=== PATIENT | male | born 1980 | race Caucasian/White ===

== ENCOUNTER 2017-05-20 18:48 | Inpatient (IN) | payer BC ==
[2017-05-20 19:14] VITALS: BMI 27.1
[2017-05-20] MEDS ORDERED: IBUPROFEN 600 MG TABLET (FP) PO ONE ×2 (19:28→19:39)
--- NOTE | 2017-05-20 19:28 | PDOC ---
History of Present Illness - History of Present Illness Initial Comments: 05/20/17 20:11 The patient is a 36 year old male, with a significant past medical history of frequent UTIs, who presents to the emergency department with increased swelling to his left testicle despite completing a 10 day course of Ciprofloxacin yesterday for UTI diagnosed 12 days ago. The patient states the swelling is much worse now than it was when he first was seen 12 days ago for left groin pain and left testicular swelling. He denies recently sexual activities. He denies penile discharge. Secondarily, he mentions he has a urologist at [facility] for 15 years with a history of [address] scans for his frequent UTIs. He states he has been told he has prostatitis. He denies chest pain, shortness of breath, headache and dizziness. He denies fever, chills, nausea, vomit, diarrhea and constipation. He denies dysuria, frequency, urgency and hematuria. Allergies: NKDA Urologist: Dr. Marcus Powers ([phone]) <Joselyn Faustin - Last Filed: 05/20/17 22:49> <Mera Gamez - Last Filed: 05/21/17 00:39> - General Chief Complaint: Back Pain Stated Complaint: PAIN Time Seen by Provider: 05/20/17 19:23 Past History <Joselyn Faustin - Last Filed: 05/20/17 22:49> - Immunization History Immunization Up to Date: Yes - Suicide/Smoking/Psychosocial Hx Smoking Status: No Smoking History: Never smoked Number of Cigarettes Smoked Daily: 0 Hx Alcohol Use: No (rarely) <Mera Gamez - Last Filed: 05/21/17 00:39> - Past Medical History Allergies/Adverse Reactions: Allergies Allergy/AdvReac Type Severity Reaction Status Date / Time No Known Allergies Allergy Verified 01/10/16 13:51 Home Medications: Ambulatory Orders Sulfamethoxazole/Trimethoprim [Bactrim *Ds*] 1 each PO BID #14 tablet 01/10/16 Doxycycline Hyclate 100 mg PO BID #14 capsule 05/20/17 Review of Systems - Review of Systems Able to Perform ROS?: Yes Comments:: 05/20/17 20:12 GENERAL/CONSTITUTIONAL: No fever or chills. No weakness. HEAD, EYES, EARS, NOSE AND THROAT: No change in vision. No ear pain or discharge. No sore throat. CARDIOVASCULAR: No chest pain or shortness of breath. RESPIRATORY: No cough, wheezing, or hemoptysis. GASTROINTESTINAL: No nausea, vomiting, diarrhea or constipation. GENITOURINARY: (+) increased left testicular swelling. No dysuria, frequency, or change in urination. No discharge. MUSCULOSKELETAL: No joint or muscle swelling or pain. No neck or back pain. SKIN: No rash NEUROLOGIC: No headache, vertigo, loss of consciousness, or change in strength/ sensation. ENDOCRINE: No increased thirst. No abnormal weight change. HEMATOLOGIC/LYMPHATIC: No anemia, easy bleeding, or history of blood clots. ALLERGIC/IMMUNOLOGIC: No hives or skin allergy. <Joselyn Faustin - Last Filed: 05/20/17 22:49> *Physical Exam - Vital Signs Last Vital Signs Temp Pulse Resp BP Pulse Ox 100.4 F H 95 H 20 131/72 99 05/20/17 19:10 05/20/17 19:10 05/20/17 19:10 05/20/17 19:10 05/20/17 19:10 - Physical Exam Comments: 05/20/17 20:12 GENERAL: Awake, alert, and fully oriented, in no acute distress HEAD: No signs of trauma EYES: PERRLA, EOMI, sclera anicteric, conjunctiva clear ENT: Auricles normal inspection, hearing grossly normal, nares patent, oropharynx clear without exudates. Moist mucosa NECK: Normal ROM, supple, no lymphadenopathy, JVD, or masses LUNGS: Breath sounds equal, clear to auscultation bilaterally. No wheezes, and no crackles HEART: Regular rate and rhythm, normal S1 and S2, no murmurs, rubs or gallops ABDOMEN: Soft, nontender, normoactive bowel sounds. No guarding, no rebound. No masses GENITAL: (+) left epididymis 2x size of the right testicle, left testicle is 3x size of right testicle. Left testicle is tender, warm and erythematous. No inguinal hernia appreciated. EXTREMITIES: Normal range of motion, no edema. No clubbing or cyanosis. No cords, erythema, or tenderness NEUROLOGICAL: Cranial nerves II through XII grossly intact. Normal speech, normal gait SKIN: Warm, Dry, normal turgor, no rashes or lesions noted. <Joselyn Faustin - Last Filed: 05/20/17 22:49> - Vital Signs Last Vital Signs Temp Pulse Resp BP Pulse Ox 100.4 F H 95 H 20 131/72 99 05/20/17 19:10 05/20/17 19:10 05/20/17 19:10 05/20/17 19:10 05/20/17 19:10 <Mera Gamez - Last Filed: 05/21/17 00:39> ED Treatment Course - LABORATORY CBC & Chemistry Diagram: 05/20/17 20:17 05/20/17 20:17 - ADDITIONAL ORDERS Additional order review: Laboratory Results 05/20/17 19:41 Urine HCG, Qual Negative - RADIOLOGY Radiograph Interpretation: EXAM: CT abdomen \T\ pelvis without contrast HISTORY: Rule out kidney stone COMPARISON: None. FINDINGS: 1. No evidence of an acute intra-abdominal process. No evidence of hydronephrosis or urinary tract calculi. No evidence of bowel obstruction, pneumoperitoneum or free fluid. No evidence of appendicitis. 2. Marked degenerative disc and endplate change L5-S1 level with bilateral L5 spondylolysis. Yumiko Cheney MD 05/20/2017 22:26 EST EXAM: Ultrasound scrotum HISTORY: Swelling on left COMPARISON: None. FINDINGS: 1. Edema and increased flow in the left epididymis consistent with left epididymitis. 2. Small complex left hydrocele with septations. 3. No definite evidence of orchitis and no evidence of testicular torsion. Yumiko Cheney MD 05/20/2017 22:28 EST - Medications Given in the ED: ED Medications Discontinued Medications Generic Name Dose Route Start Last Admin Trade Name Freq PRN Reason Stop Dose Admin Ibuprofen 600 mg 05/20/17 19:28 05/20/17 19:56 Motrin - PO 05/20/17 19:29 600 mg ONCE ONE Administration <Joselyn Faustin - Last Filed: 05/20/17 22:49> - LABORATORY CBC & Chemistry Diagram: 05/20/17 20:17 05/20/17 20:17 <Mera Gamez - Last Filed: 05/21/17 00:39> Medical Decision Making - Medical Decision Making 05/20/17 22:45 Dr. Marcus Powers, [facility] Urologist, was paged via phone answering service at this time requesting a call back for doctor to doctor consult. <Joselyn Faustin - Last Filed: 05/20/17 22:49> - Medical Decision Making 05/20/17 19:58 Pt has worsening swelling of his left scrotum. He has a fever. He was diagnosed at [facility] with a UTI he was treated with a shot and cipro pills. 05/20/17 22:16 CXR is normal. UA is normal; Pt has an elevated WBC count. Sono pending. 05/20/17 23:12 Case d/w Dr. Powers who recommends admission vs a dose of ampicillin and gentamicin IVPB now; home with doxy BID and follow in the office tomorrrow 05/21/17 00:16 Pt figured out that he completed a 10 day course of doxycycline and a 7 day course of cipro just a couple laguerre back completed both. Given that he just completed a course of oral doxy, I feel that sending daniel out with doxy will not be helpful. I will discuss with our urologist operation specialist and admit patient to the hospitalist team for scrotal cellulitis/epididymitis/septated varicocele; 05/21/17 00:21 Dr. Phillip urology agrees and will see the patient tomorrow. I will admit to hospitalist. <Mera Gamez - Last Filed: 05/21/17 00:39> *DC/Admit/Observation/Transfer - Attestations Scribe Attestion: 05/20/17 20:13 Documentation prepared by Joselyn Faustin, acting as medical claims assistant for Mera Gamez MD <Joselyn Faustin - Last Filed: 05/20/17 22:49> - Discharge Dispostion Admit: Yes <Mera Gamez - Last Filed: 05/21/17 00:39> Diagnosis at time of Disposition: Fever, Epididymitis, Varicocele, Cellulitis of scrotum - Discharge Dispostion Condition at time of disposition: Guarded - Prescriptions Prescriptions: Doxycycline Hyclate 100 mg PO BID #14 capsule - Referrals Referrals: Thiago Lucas MD [Primary Care Provider] - - Patient Instructions - Post Discharge Activity
[2017-05-20 20:07] LABS: URINE APPEARANCE CLEAR; URINE BILIRUBIN NEGATIVE (NEGATIVE); URINE BLOOD NEGATIVE (NEGATIVE); URINE COLOR LTYELLOW; URINE GLUCOSE (UA) NEGATIVE (NEGATIVE); URINE KETONE NEGATIVE (NEGATIVE); URINE LEUK ESTERASE NEGATIVE (NEGATIVE); URINE NITRITE NEGATIVE (NEGATIVE); URINE PROTEIN NEGATIVE (NEGATIVE); URINE UROBILINOGEN NEGATIVE mg/dL (0.2-1.0)
[2017-05-20 20:09] LABS: HCG,QUALITATIVE URINE NEGATIVE
[2017-05-20 20:32] LABS: BASO % 0.4 % (0-2.0); EOS % 0.5 % (0-4.5); HEMATOCRIT 42.6 % (35.4-49); HEMOGLOBIN 14.3 GM/dL (11.7-16.9); MCH 30.6 pg (25.7-33.7); MCHC 33.5 g/dl (32.0-35.9); MEAN CELL VOLUME 91.6 fl (80-96); MEAN PLT VOLUME 8.2 fl (7.5-11.1); MONO % 6.6 % (3.8-10.2); NEUT % 78.5 % (42.8-82.8); PLATELET COUNT 329 K/MM3 (134-434); RBC 4.65 M/mm3 (4.00-5.60); RDW 12.6 % (11.9-15.9); WHITE BLOOD COUNT 13.1 K/mm3 (4.0-10.0)
[2017-05-20 20:57] LABS: ALBUMIN 4.1 g/dl (3.4-5.0); ANION GAP 11 (8-16); BLOOD UREA NITROGEN 19 mg/dL (7-18); CHLORIDE 103 mmol/L (98-107); CO2 24 mmol/L (21-32); CREATININE 1.1 mg/dL (0.7-1.3); GLUCOSE,RANDOM 90 mg/dL (74-106); POTASSIUM 3.9 mmol/L (3.5-5.1); SGOT/AST 26 U/L (15-37); SGPT/ALT 39 U/L (12-78); SODIUM 138 mmol/L (136-145)
[2017-05-20 20:59] LABS: ALK PHOS 70 U/L (45-117); BILIRUBIN,TOTAL 0.7 mg/dL (0.2-1.0); TOT PROT 7.9 g/dl (6.4-8.2)
[2017-05-20] MEDS ORDERED: DOXYCYCLINE INJECTION 100 MG in DEXTROSE 5%-WATER - 150 ML IVPB ONE (22:34)
[2017-05-20] MEDS ORDERED: DOXYCYCLINE HYCLATE 100 MG VIAL ONE (22:40)
[2017-05-20] MEDS ORDERED: cefTRIAXone SODIUM 1 GM VIAL ONE (22:40)
[2017-05-20] MEDS ORDERED: GENTAMICIN INJECTION 100 MG in SODIUM CHLORIDE 97.5 ML IVPB ONE (23:09)
[2017-05-20] MEDS ORDERED: AMPICILLIN - 2 GM in SODIUM CHLORIDE 100 ML IVPB ONE (23:10)
[2017-05-20] MEDS ORDERED: GENTAMICIN SO4 80 MG/2 ML VIAL ONE (23:28)
[2017-05-20] MEDS ORDERED: AMPICILLIN SODIUM 2 GM VIAL ONE (23:28)
--- NOTE | 2017-05-21 00:51 | PN ---
Teaching Attending Note Name of Resident: Eligio Headley ATTENDING PHYSICIAN STATEMENT I saw and evaluated the patient. I reviewed the resident's note and discussed the case with the resident. I agree with the resident's findings and plan as documented. SUBJECTIVE: 36 M with hx. of UTI's (E-Coli), who presents with scrotal edema, failed outpatient for possibly UTI's. States he was oN Cipro X 10 days. Also, completed a course of Docycycline. Pt. states he noted scortal edema and erythema, no fevers at home, exept for with UTI. Also, has pain with scrotal edema. OBJECTIVE: Physical: VS: Vital Signs Period Temp Pulse Resp BP Sys/Flores Pulse Ox Last 24 Hr 100.4 F 95 20 131/72 99 GEN: NAd, resting in bed, AA0X3 HEENT: NCAT, PERRL, throat without erythema or exudates CARD: RRR S1, S2 RESP: CTAB ABD: BSx4, NTD to palpation EXT: - C/C/E CBCD WBC 13.1 K/mm3 (4.0-10.0) H D 05/20/17 20:17 RBC 4.65 M/mm3 (4.00-5.60) 05/20/17 20:17 Hgb 14.3 GM/dL (11.7-16.9) 05/20/17 20:17 Hct 42.6 % (35.4-49) 05/20/17 20:17 MCV 91.6 fl (80-96) 05/20/17 20:17 MCHC 33.5 g/dl (32.0-35.9) 05/20/17 20:17 RDW 12.6 % (11.9-15.9) 05/20/17 20:17 Plt Count 329 K/MM3 (134-434) D 05/20/17 20:17 MPV 8.2 fl (7.5-11.1) 05/20/17 20:17 CMP Sodium 138 mmol/L (136-145) 05/20/17 20:17 Potassium 3.9 mmol/L (3.5-5.1) 05/20/17 20:17 Chloride 103 mmol/L (98-107) 05/20/17 20:17 Carbon Dioxide 24 mmol/L (21-32) 05/20/17 20:17 Anion Gap 11 (8-16) 05/20/17 20:17 BUN 19 mg/dL (7-18) H D 05/20/17 20:17 Creatinine 1.1 mg/dL (0.7-1.3) D 05/20/17 20:17 Creat Clearance w eGFR > 60 (>60) 05/20/17 20:17 Random Glucose 90 mg/dL (74-106) 05/20/17 20:17 Calcium 9.0 mg/dL (8.5-10.1) 05/20/17 20:17 Total Bilirubin 0.7 mg/dL (0.2-1.0) D 05/20/17 20:17 AST 26 U/L (15-37) D 05/20/17 20:17 ALT 39 U/L (12-78) D 05/20/17 20:17 Alkaline Phosphatase 70 U/L (45-117) D 05/20/17 20:17 Total Protein 7.9 g/dl (6.4-8.2) 05/20/17 20:17 Albumin 4.1 g/dl (3.4-5.0) 05/20/17 20:17 Urine Test Results Urine Color Ltyellow 05/20/17 19:41 Urine Appearance Clear 05/20/17 19:41 Urine pH 5.0 (5.0-8.0) 05/20/17 19:41 Ur Specific [place] 1.018 (1.001-1.035) 05/20/17 19:41 Urine Protein Negative (NEGATIVE) 05/20/17 19:41 Urine Glucose (UA) Negative (NEGATIVE) 05/20/17 19:41 Urine Ketones Negative (NEGATIVE) 05/20/17 19:41 Urine Blood Negative (NEGATIVE) 05/20/17 19:41 Urine Nitrite Negative (NEGATIVE) 05/20/17 19:41 Urine Bilirubin Negative (NEGATIVE) 05/20/17 19:41 Ur Leukocyte Esterase Negative (NEGATIVE) 05/20/17 19:41 EXAM: CT abdomen \T\ pelvis without contrast HISTORY: Rule out kidney stone COMPARISON: None. FINDINGS: 1. No evidence of an acute intra-abdominal process. No evidence of hydronephrosis or urinary tract calculi. No evidence of bowel obstruction, pneumoperitoneum or free fluid. No evidence of appendicitis. 2. Marked degenerative disc and endplate change L5-S1 level with bilateral L5 spondylolysis. Yumiko Cheney MD 05/20/2017 22:26 EST EXAM: Ultrasound scrotum HISTORY: Swelling on left COMPARISON: None. FINDINGS: 1. Edema and increased flow in the left epididymis consistent with left epididymitis. 2. Small complex left hydrocele with septations. 3. No definite evidence of orchitis and no evidence of testicular torsion. ASSESSMENT AND PLAN: 36 M with hx. of UTI's (E-Coli), who presents with scrotal edema, failed outpatient for possibly UTI's. States he was oN Cipro X 10 days. Also, completed a course of Docycycline, being admitted for Sepsis due to epididymitis /scrotal cellulitis. 1.) Scotal Cellulitis/Epididymitis/Hydrocele - Lopez Cx - LA - IVF - S/P Gentamycin and Ampicillin as per , will get ID consult - consulted - GC screen - HIV test if pt. amenable 2.) DVT Ppx - Scds Place in Med-Sx
--- NOTE | 2017-05-21 01:56 | HP ---
CHIEF COMPLAINT: L scrotal swelling, pain PCP: None HISTORY OF PRESENT ILLNESS: 36 yo man w/ pmh of multiple UTIs presents to ED with increased swelling/pain of L testicle in the setting of recent 10 day abx course (ciprofloxacin) for UTI diagnosed 12 days ago. Pt states that he initially presented to urgent care two weeks ago for fever/dysuria, where he was diagnosed with UTI and started on 10 day course of ciprofloxacin. Yesterday, pt noted increased swelling and pain in L testicle, w/ no penile discharge, inguinal masses or local erythema. Pt denies ALCALA/Dizziness, fever/chills, CP, SOB, abdominal pain, N/V, diarrhea, rashes or focal neurologic deficits. He denies any recent dysuria, hematuria, frequency. He denies any recent sexual activity and has no prior hx of STDs. Pt sexually active and monogamous with , who has never been diagnosed with STD per pt, and does not use condoms. Pt states he had a similar episode of scrotal swelling around the age of 12, but is unable to provide further details of the hx or course. No hx of hernias. Pt follows w/ Dr. Powers at [facility] for last year and at [facility] for prior 10 years for his chronic, recurrent UTIs and has received multiple CT scans for evaluation, as well as cystoscopy, which was normal per pt. Per pt, Dr. powers has a suspicion of possible chronic prostatis as the possible source for recurrent infections. All work-up prior to this presentation has been inconclusive. Urologist: Dr. Marcus Powers ([phone]) ER course was notable for: (1)WBC 13, Fever 100.4 (2)Scrotal U/S w/ hydrocele and evidence of epididymitis (3)CT w/ no acute intra-abdominal process (4) Received 1x dose Amp/gent, doxy and rocephin in ED Recent Travel: None PAST MEDICAL HISTORY: Recurrent UTIs ?Prostatitis PAST SURGICAL HISTORY: None Social History: Smoking: Denies Alcohol: Denies Drugs: Denies Family History: No family hx of UTIs, recurrent infections or other chronic conditions Allergies No Known Allergies Allergy (Verified 01/10/16 13:51) HOME MEDICATIONS: Home Medications Medication Instructions Recorded Sulfamethoxazole/Trimethoprim 1 each PO BID #14 tablet 01/10/16 [Bactrim *Ds*] Doxycycline Hyclate 100 mg PO BID #14 capsule 05/20/17 REVIEW OF SYSTEMS CONSTITUTIONAL: fever, Absent: chills, diaphoresis, generalized weakness, malaise, loss of appetite, weight change HEENT: Absent: rhinorrhea, nasal congestion, throat pain, throat swelling, difficulty swallowing, mouth swelling, ear pain, eye pain, visual changes CARDIOVASCULAR: Absent: chest pain, syncope, palpitations, irregular heart rate, lightheadedness , peripheral edema RESPIRATORY: Absent: cough, shortness of breath, dyspnea with exertion, orthopnea, wheezing, stridor, hemoptysis GASTROINTESTINAL: Absent: abdominal pain, abdominal distension, nausea, vomiting, diarrhea, constipation, melena, hematochezia GENITOURINARY: L scrotal swelling, pain Absent: dysuria, frequency, urgency, hesitancy, hematuria, flank pain MUSCULOSKELETAL: Absent: myalgia, arthralgia, joint swelling, neck pain SKIN: Absent: rash, itching, pallor HEMATOLOGIC/IMMUNOLOGIC: Absent: easy bleeding, easy bruising, lymphadenopathy, frequent infections ENDOCRINE: Absent: unexplained weight gain, unexplained weight loss, heat intolerance, cold intolerance NEUROLOGIC: Absent: headache, focal weakness or paresthesias, dizziness, unsteady gait, seizure, mental status changes, bladder or bowel incontinence PSYCHIATRIC: Absent: anxiety, depression, suicidal or homicidal ideation, hallucinations. PHYSICAL EXAMINATION Vital Signs - 24 hr 05/20/17 19:10 Temperature 100.4 F H Pulse Rate 95 H Respiratory 20 Rate Blood Pressure 131/72 O2 Sat by Pulse 99 Oximetry (%) GENERAL: Awake, alert, and fully oriented, in no acute distress. HEAD: Normal with no signs of trauma. EYES: Pupils equal, round and reactive to light, extraocular movements intact, sclera anicteric, conjunctiva clear. No lid lag. EARS, NOSE, THROAT: Ears normal, nares patent, oropharynx clear without exudates. Moist mucous membranes. NECK: Normal range of motion, supple without lymphadenopathy, JVD, or masses. LUNGS: Breath sounds equal, clear to auscultation bilaterally. No wheezes, and no crackles. No accessory muscle use. HEART: Regular rate and rhythm, normal S1 and S2 without murmur, rub or gallop. ABDOMEN: Soft, nontender, not distended, normoactive bowel sounds, no guarding, no rebound, no masses. No hepatomegaly or splenomegaly. MUSCULOSKELETAL: Normal range of motion at all joints. No bony deformities or tenderness. No CVA tenderness. UPPER EXTREMITIES: 2+ pulses, warm, well-perfused. No cyanosis. No clubbing. No peripheral edema. LOWER EXTREMITIES: 2+ pulses, warm, well-perfused. No calf tenderness. No peripheral edema. NEUROLOGICAL: Cranial nerves II-XII intact. Normal speech. Normal gait. PSYCHIATRIC: Cooperative. Good eye contact. Appropriate mood and affect. SKIN: Warm, dry, normal turgor, no rashes or lesions noted, normal capillary refill. Genital: L testicle significantly enlarged, very tender to palpation when compared to R. Prominent, engorged epididymis. No inguinal hernia noted. No notable erythema, lesions, rashes or purulence. Laboratory Results - last 24 hr CBC, BMP 05/20/17 20:17 05/20/17 20:17 05/20/17 05/20/17 05/20/17 19:41 20:17 20:17 WBC 13.1 H D RBC 4.65 Hgb 14.3 Hct 42.6 MCV 91.6 MCH 30.6 MCHC 33.5 RDW 12.6 Plt Count 329 D MPV 8.2 Neutrophils % 78.5 Lymphocytes % 14.0 Monocytes % 6.6 Eosinophils % 0.5 D Basophils % 0.4 Sodium 138 Potassium 3.9 Chloride 103 Carbon Dioxide 24 Anion Gap 11 BUN 19 H D Creatinine 1.1 D Creat Clearance w eGFR > 60 Random Glucose 90 Calcium 9.0 Total Bilirubin 0.7 D AST 26 D ALT 39 D Alkaline Phosphatase 70 D Total Protein 7.9 Albumin 4.1 Urine Color Ltyellow Urine Appearance Clear Urine pH 5.0 Ur Specific [place] 1.018 Urine Protein Negative Urine Glucose (UA) Negative Urine Ketones Negative Urine Blood Negative Urine Nitrite Negative Urine Bilirubin Negative Urine Urobilinogen Negative Ur Leukocyte Esterase Negative Urine HCG, Qual Negative CT abdomen/pelvis 05/21/17 - 1. No evidence of an acute intra-abdominal process. No evidence of hydronephrosis or urinary tract calculi. No evidence of bowel obstruction, pneumoperitoneum or free fluid. No evidence of appendicitis. 2. Marked degenerative disc and endplate change L5-S1 level with bilateral L5 spondylolysis. Scrotal U/S - 1. Edema and increased flow in the left epididymis consistent with left epididymitis. 2. Small complex left hydrocele with septations. 3. No definite evidence of orchitis and no evidence of testicular torsion. CXR - No pathology noted ASSESSMENT/PLAN: 36 yo man w/ pmh of multiple UTIs presents to ED with increased swelling/pain of L testicle in the setting of recent 10 day abx course (ciprofloxacin) for UTI diagnosed 12 days ago. #Sepsis secondary to epididymitis/testicular cellulitis - WBC 13.1, fever 100.4 on admission; Testicular U/s with evidence of epididymitis/septated varicocele - ID consulted - Trend WBC, fever - Trend lactate - Amp/gent for abx coverage; defer to ID recs - Ampicilin 500mg q6h for infections - Gentamicin 3mg/kg/day in divided doses q8h - GC/Chlamydia panel - HIV test if pt amenable - consulted - f/u all cultures - IVFs - consulted, Dr. Phillip to see pt in AM -tylenol for pain control PPX SCDs FEN NS 100cc/hr Daily BMPs; no electrolyte abnormalities Regular diet Plan discussed with attending, Dr. Ting Headley, PGY1 Visit type - Emergency Visit Emergency Visit: Yes ED Registration Date: 05/21/17 Care time: The patient presented to the Emergency Department on the above date and was hospitalized for further evaluation of their emergent condition. - New Patient This patient is new to me today: Yes Date on this admission: 05/21/17 - Critical Care Critical Care patient: No
[2017-05-21] MEDS: SODIUM CHLORIDE 1,000 ML IV SCH ×2 (04:37→21:01)
[2017-05-21] MEDS ORDERED: AMPICILLIN IVPB ONE (05:00)
[2017-05-21] MEDS ORDERED: SODIUM CHLORIDE IVPB ONE (05:00)
[2017-05-21 05:32] LABS: BASO % 0.4 % (0-2.0); EOS % 0.1 % (0-4.5); HEMOGLOBIN 13.6 GM/dL (11.7-16.9); MCH 30.4 pg (25.7-33.7); MCHC 33.2 g/dl (32.0-35.9); MEAN CELL VOLUME 91.5 fl (80-96); MEAN PLT VOLUME 8.3 fl (7.5-11.1); MONO % 8.6 % (3.8-10.2); NEUT % 78.9 % (42.8-82.8); PLATELET COUNT 318 K/MM3 (134-434); RBC 4.48 M/mm3 (4.00-5.60); RDW 12.3 % (11.9-15.9); WHITE BLOOD COUNT 14.3 K/mm3 (4.0-10.0)
[2017-05-21 06:26] LABS: ALBUMIN 3.7 g/dl (3.4-5.0); ALK PHOS 62 U/L (45-117); ANION GAP 7 (8-16); BILIRUBIN,TOTAL 1.4 mg/dL (0.2-1.0); BLOOD UREA NITROGEN 13 mg/dL (7-18); CALCIUM 8.3 mg/dL (8.5-10.1); CHLORIDE 105 mmol/L (98-107); CO2 26 mmol/L (21-32); GLUCOSE,RANDOM 85 mg/dL (74-106); POTASSIUM 4.1 mmol/L (3.5-5.1); SGOT/AST 24 U/L (15-37); SGPT/ALT 35 U/L (12-78); SODIUM 138 mmol/L (136-145); TOT PROT 7.2 g/dl (6.4-8.2)
[2017-05-21] MEDS ORDERED: GENTAMICIN 100 MG/100 ML BAG IVPB ONE (07:00)
[2017-05-21] MEDS ORDERED: ACETAMINOPHEN 325 MG TABLET (FP) ONE (09:57)
[2017-05-21] MEDS: ACETAMINOPHEN 325 MG TABLET (FP) PO PRN ×2 (10:02→17:34)
--- NOTE | 2017-05-21 11:31 | PN ---
Progress Note (short form) - Note Progress Note: ID Consult dictated Acute L epididymitis Hx chronic recurrent UTIs Fever/ Leukocytosis R/O sepsis secondary to source Await cultures Obtain urine c/s result from outpatient visit Empiric cefepime 2gm IVPB q8h Urology evaluation Quantiferon
[2017-05-21] MEDS ORDERED: CEFEPIME HCL 2 GM VIAL (RESTRICTED TO ID) IVPB SCH (11:45)
[2017-05-21] MEDS ORDERED: CEFEPIME 2 GM/100 ML BAG IVPB ONE (11:49)
[2017-05-21] MEDS: CEFEPIME 2 GM in DEXTROSE 5%-WATER - 100 ML IVPB SCH ×2 (11:53→18:39)
--- NOTE | 2017-05-21 12:55 | CONS ---
DATE OF CONSULTATION: CHIEF COMPLAINT: Patient evaluated for acute left epididymis. HISTORY: The patient has a long and complicated urological history. He reports having epididymitis at age 13. For the past 10 years, he has been under the care of a urologist at [place] for recurrent urinary tract infections. He reports extensive workup including several CAT scans. Cystoscopies have been negative for underlying anatomical defect or etiology for his recurrent urinary tract infections. For the past 1 year, he has been seeing a urologist at [facility]. Approximately 2 weeks ago, he developed left testicular pain and swelling. He was evaluated in the urgent care center. He reports that cultures were obtained. He was empirically prescribed ciprofloxacin and doxycycline. Despite taking the ciprofloxacin for 7 days and doxycycline for 10 days, he has had increased pain and swelling of the left scrotal area. He presented to the emergency room where he was noted to have low-grade fever and an elevated white blood cell count. Cultures were obtained. He was empirically treated with IV antibiotics. A sonogram of the scrotum was performed and showed a left epididymitis with a complex left hydrocele. No evidence of orchitis was noted. The patient lives at home with his . He is sexually active with her. He is monogamous. Does not use condoms. He has no history of sexually transmitted diseases. [place] was [place] in the [place] and has been a lifelong resident. No history of TB exposure. The patient denies any dysuria or hematuria at the present time. He did not have fever or chills at home, although he was febrile in the emergency room. He reports that his urine cultures have consistently grown Escherichia coli. The only culture result available to us at this time is a urine culture from 2014, which showed an ampicillin and quinolone-resistant Escherichia coli. PAST MEDICAL HISTORY: As above includes frequent urinary tract infections and a history of prostatitis. PAST SURGICAL HISTORY: Negative. ALLERGIES: No known allergies. SOCIAL HISTORY: He is . Lives at home with his . Monogamous. He denies tobacco, alcohol, or illicit drugs. He works as a doorman. SYSTEMS REVIEW: Neurologic: No loss of consciousness, seizure activity, or focal weakness. Cardiac: Negative chest pain or palpitations. Respiratory: Negative cough or sputum production. Gastrointestinal: Negative vomiting or diarrhea. Genitourinary: As per HPI. LABORATORY DATA: White count 14.3, hematocrit 41, platelet count 318, differential 78 neutrophils, 12 lymphocytes, 8 monocytes, BUN 13, creatinine 1. Urine: Leukocyte esterase negative. Urine culture pending. Total bilirubin 1.4, alkaline phosphatase 62, AST 24. GC and Chlamydia probe pending. PHYSICAL EXAMINATION: General: He is awake and alert in no acute distress. Vital Signs: Temperature 99.4, T-max 100.4, blood pressure 112/68, pulse 99 and regular, respirations 20 per minute. HEENT: Sclerae anicteric. Dry mucous membranes. Neck: Supple. Heart: Sounds S1, S2. Lungs: Clear. Abdomen: Soft. No tenderness elicited. No suprapubic or flank tenderness. Extremities: Negative for edema. Genitalia: Examination of the genital area, there is marked swelling of the left hemiscrotum with erythema. There is an exquisitely tender, swollen epididymis. No penile lesions noted. Positive small inguinal adenopathy. IMPRESSION: 1. Acute left epididymitis. 2. History of chronic, recurrent urinary tract infections with Escherichia coli. 3. Fever, leukocytosis, possible sepsis secondary to genitourinary source. PLAN: Await blood and urine culture results. Obtain most recent urine culture result from primary provider done last week. Empiric antibiotic coverage for possible quinolone and ampicillin-resistant Escherichia coli with cefepime 2 mg IV piggyback every 8 hours. Obtain QuantiFeron. Urology evaluation. Case discussed with the patient's present at the time of examination. Thank you for the kind referral. ADAN VAUGHAN M.D. [id number]
--- NOTE | 2017-05-21 15:13 | CON.GU ---
Consult Consult Specialty:: Referred by:: Ting Reason for Consultation:: L epididymitis - History of Present Illness Chief Complaint: L testicular swelling and pain History of Present Illness: 36 yo m w hx rec UTIs and L epididymitis at age 13, s/p extensive w/u in the past who was seen at [facility] 2 weeks ago for same dxd w acute L epididymitis rx w cipro and doxy however his pain and swelling persisted and he pres to ED. He was found to have fever, elevated WBC count and hot swollen tender L hemiscrotum and cons req. - History Source History Provided By: Patient, Medical Record Limitations to Obtaining History: No Limitations - Past Medical History Renal/: Yes: UTI (L epididymitis) - Alcohol/Substance Use Hx Alcohol Use: No (rarely) - Smoking History Smoking history: Never smoked Aproximately how many cigarettes per day: 0 Home Medications - Allergies Allergies/Adverse Reactions: Allergies Allergy/AdvReac Type Severity Reaction Status Date / Time No Known Allergies Allergy Verified 01/10/16 13:51 - Home Medications Home Medications: Ambulatory Orders Doxycycline Hyclate 100 mg PO BID 05/21/17 Review of Systems - Review of Systems Constitutional: reports: Fever Genitourinary: reports: Testicular Swelling Physical Exam- Vital Signs: Vital Signs Temperature 98.4 F 05/21/17 12:00 Pulse Rate 93 H 05/21/17 12:00 Respiratory Rate 17 05/21/17 12:00 Blood Pressure 99/58 05/21/17 12:00 O2 Sat by Pulse Oximetry (%) 99 05/21/17 09:00 Gastrointestinal: Yes: Normal Bowel Sounds, Soft Renal/: Yes: WNL Testicles: Yes: Tenderness Scrotum: Yes: Hydrocele, Tenderness (enlarged, tender L epididymis w erythema) Labs: CBC, BMP 05/21/17 05:00 05/21/17 05:00 Imaging - Results Cat Scan: Report Reviewed Ultrasound: Report Reviewed Problem List - Problems (1) Epididymitis Code(s): N45.1 - EPIDIDYMITIS (2) Hydrocele Code(s): N43.3 - HYDROCELE, UNSPECIFIED Assessment/Plan Imp: acute L epididymitis, hx rec UTI Rec: urine c+s, IV abxs, f/u in office after disch, consider bilat vasectomy.
--- NOTE | 2017-05-21 17:59 | PN ---
<Ngoc Lazo - Last Filed: 05/21/17 18:10> Physical Exam: SUBJECTIVE: Patient seen and examined. C/o L testicle pain/swelling. No fever or chills. OBJECTIVE: Vital Signs Period Temp Pulse Resp BP Sys/Flores Pulse Ox Last 24 Hr 98.4 F-100.4 F 93-99 17-20 99-131/58-72 99-99 GENERAL: nad, aaox3 EYES: sclera anicteric, conjunctiva clear ENT: oropharynx clear without exudates, MMM NECK: supple, no cervial LAD LUNGS: CTAB HEART: rrr, normal s1/s2 ABDOMEN: Soft, ntnd, LOWER EXTREMITIES: 2+ DP pulses, wwp, no edema : no suprapubic ttp, enlarged, tender L epididymis w erythema, no penile discharge 05/21/17 05:00 05/21/17 05:00 Hepatic Panel Total Bilirubin 1.4 mg/dL (0.2-1.0) H D 05/21/17 05:00 AST 24 U/L (15-37) 05/21/17 05:00 ALT 35 U/L (12-78) 05/21/17 05:00 Alkaline Phosphatase 62 U/L (45-117) 05/21/17 05:00 Albumin 3.7 g/dl (3.4-5.0) 05/21/17 05:00 Urine Test Results Urine Color Ltyellow 05/20/17 19:41 Urine Appearance Clear 05/20/17 19:41 Urine pH 5.0 (5.0-8.0) 05/20/17 19:41 Ur Specific Glidden 1.018 (1.001-1.035) 05/20/17 19:41 Urine Protein Negative (NEGATIVE) 05/20/17 19:41 Urine Glucose (UA) Negative (NEGATIVE) 05/20/17 19:41 Urine Ketones Negative (NEGATIVE) 05/20/17 19:41 Urine Blood Negative (NEGATIVE) 05/20/17 19:41 Urine Nitrite Negative (NEGATIVE) 05/20/17 19:41 Urine Bilirubin Negative (NEGATIVE) 05/20/17 19:41 Ur Leukocyte Esterase Negative (NEGATIVE) 05/20/17 19:41 IMAGING: CT A/P w/o contrast 05/20/17: The visualized lung base appears unremarkable and the heart is within normal limits in size. There is mild fluid distention of the distal esophagus. Evaluation of the liver, spleen, pancreas, gallbladder, both adrenal glands and both kidneys appear unremarkable. Both kidneys appear unremarkable without evidence of hydroureteronephrosis, renal or ureteral stone , bilaterally. The stomach is partially distended without wall thickening. There is no evidence of small bowel obstruction. Normal-appearing terminal ileum. Nonvisualization of the appendix. Moderate amount of fecal residue in the colon without wall thickening. Partially distended urinary bladder without wall thickening. Normal size prostate gland. Perirectal and pericecal fat are clear. There is moderate to marked degenerative disc disease at L5-S1 level with bilateral spondylolysis and moderate bilateral facet hypertrophy. Mild broad-based disc bulge is slightly narrowing the foramina reaching and probably slightly impinging right L5 nerve root IMPRESSION: Nonvisualization of the appendix. No CT evidence of an acute process in the abdomen and pelvis. Partially distended urinary bladder limiting evaluation of its wall without gross thickening. Moderately severe degenerative disc disease at L5-S1 level with irregularity of the corresponding endplates, bilateral spondylolysis and mild disc bulge likely impinging right L5 nerve root. Scrotal ultrasound 05/20/17: The right testicle measures 5 x 2.6 cm with a homogeneous echotexture and normal vascular flow. The right epididymal head, body and tail measure 7, 4 and 7 mm, respectively. Left testicle measures 4.5 x 3.6 cm with homogeneous echotexture. Arterial and venous flow was documented. The left epididymal head, body and tail measure 7, 7 and 12 mm, respectively. There is a small amount of fluid/hydrocele on the left with septations. On the color Doppler images, there is prominent vascular flow in the left testicle and epididymis relative to the right. There is no evidence of a varicocele IMPRESSION: Hypervascular left testicle and prominent hypervascular left epididymis when compared to the right consistent with left epididymoorchitis. A small left hydrocele with thin septations is present ASSESSMENT/PLAN: 36yo man with PMH of recurrent UTIs who p/w 1x day of L testicular pain and swelling one day after completing a course of Cipro and doxy for UTI diagnosed on 05/09 now with L epididymitis #Sepsis 2/2 L epididymitis - WBC 13.1, fever 100.4 on admission; scotal U/S e/o L epididymitis/ small septated hydrococele [facility] Records in patient's chart: 05/09/17 UCx grew Serratia marescens, sensitive to Cefepime -ID consulted.Started on Cefepime 2gm IVPB q8h -f/u Urine cultures -f/u GC/Chlamydia and Quantiferon - consulted -tylenol prn for pain control #DVT PPX - SCDs #FEN: NS 100cc/hr / lytes wnl / Regular diet #DISPO: continue M/S FULL code d/w Dr. Orlando Lazo MD PGY1 - Internal Medicine Visit type - Emergency Visit Emergency Visit: No - New Patient This patient is new to me today: Yes Date on this admission: 05/21/17 - Critical Care Critical Care patient: No <Lakeshia Perry - Last Filed: 05/21/17 19:54> Physical Exam: SUBJECTIVE: Patient seen and examined. Agree with the resident's note
[2017-05-22] MEDS ORDERED: PT OWN MED DRAWER 7, Y5N ONE ×2 (02:05→16:40)
[2017-05-22] MEDS: CEFEPIME 2 GM in DEXTROSE 5%-WATER - 100 ML IVPB SCH ×3 (02:07→17:35)
[2017-05-22] MEDS: SODIUM CHLORIDE 1,000 ML IV SCH ×2 (06:36→21:52)
[2017-05-22 07:37] LABS: HEMATOCRIT 41.3 % (35.4-49); HEMOGLOBIN 13.5 GM/dL (11.7-16.9); MCH 30.2 pg (25.7-33.7); MCHC 32.6 g/dl (32.0-35.9); MEAN CELL VOLUME 92.8 fl (80-96); MEAN PLT VOLUME 8.5 fl (7.5-11.1); PLATELET COUNT 313 K/MM3 (134-434); RBC 4.46 M/mm3 (4.00-5.60); RDW 12.6 % (11.9-15.9); WHITE BLOOD COUNT 15.4 K/mm3 (4.0-10.0)
[2017-05-22 07:52] LABS: ALBUMIN 3.4 g/dl (3.4-5.0); ANION GAP 10 (8-16); BILIRUBIN,TOTAL 1.2 mg/dL (0.2-1.0); BLOOD UREA NITROGEN 11 mg/dL (7-18); CALCIUM 8.8 mg/dL (8.5-10.1); CHLORIDE 106 mmol/L (98-107); CO2 25 mmol/L (21-32); CREATININE 1.1 mg/dL (0.7-1.3); GLUCOSE,RANDOM 82 mg/dL (74-106); POTASSIUM 4.1 mmol/L (3.5-5.1); SGOT/AST 16 U/L (15-37); SGPT/ALT 27 U/L (12-78); SODIUM 141 mmol/L (136-145)
[2017-05-22 07:54] LABS: ALK PHOS 60 U/L (45-117); TOT PROT 7.4 g/dl (6.4-8.2)
--- NOTE | 2017-05-22 11:19 | PN ---
Progress Note (short form) - Note Progress Note: continued scrotal pain and swelling no fevers stilll alot of pain Vital Signs Period Temp Pulse Resp BP Sys/Flores Pulse Ox Last 24 Hr 98.4 F-99.2 F 77-98 16-20 98-116/53-80 97 cor-rrr lungs clear abd soft,nt scrotal swelling with erythema pain on palpation ext no edema CBC, BMP 05/22/17 06:00 05/22/17 06:00 cultures pending Current Medications Acetaminophen (Tylenol -) 650 mg PO Q4H PRN PRN Reason: FEVER OR PAIN Last Admin: 05/21/17 17:34 Dose: 650 mg Sodium Chloride (Normal Saline -) 1,000 mls @ 100 mls/hr IV ASDIR SASHA Last Admin: 05/22/17 06:36 Dose: 100 mls/hr Cefepime HCl 2 gm/ Dextrose 100 mls @ 200 mls/hr IVPB Q8H-IV SASHA Last Admin: 05/22/17 10:39 Dose: 200 mls/hr a/p left epididymitis- awaiting cultures continue cefepime
--- NOTE | 2017-05-22 13:34 | PN ---
Teaching Attending Note Name of Resident: Ngoc Lazo ATTENDING PHYSICIAN STATEMENT I saw and evaluated the patient. I reviewed the resident's note and discussed the case with the resident. I agree with the resident's findings and plan as documented. SUBJECTIVE: Patient is lying in bed comfortably OBJECTIVE: Vital Signs Temperature 98.9 F 05/22/17 06:04 Pulse Rate 77 05/22/17 06:04 Respiratory Rate 20 05/22/17 06:04 Blood Pressure 108/80 05/22/17 06:04 O2 Sat by Pulse Oximetry (%) 97 05/21/17 20:20 CBCD WBC 15.4 K/mm3 (4.0-10.0) H 05/22/17 06:00 RBC 4.46 M/mm3 (4.00-5.60) 05/22/17 06:00 Hgb 13.5 GM/dL (11.7-16.9) 05/22/17 06:00 Hct 41.3 % (35.4-49) 05/22/17 06:00 MCV 92.8 fl (80-96) 05/22/17 06:00 MCHC 32.6 g/dl (32.0-35.9) 05/22/17 06:00 RDW 12.6 % (11.9-15.9) 05/22/17 06:00 Plt Count 313 K/MM3 (134-434) 05/22/17 06:00 MPV 8.5 fl (7.5-11.1) 05/22/17 06:00 CMP Sodium 141 mmol/L (136-145) 05/22/17 06:00 Potassium 4.1 mmol/L (3.5-5.1) 05/22/17 06:00 Chloride 106 mmol/L (98-107) 05/22/17 06:00 Carbon Dioxide 25 mmol/L (21-32) 05/22/17 06:00 Anion Gap 10 (8-16) 05/22/17 06:00 BUN 11 mg/dL (7-18) 05/22/17 06:00 Creatinine 1.1 mg/dL (0.7-1.3) 05/22/17 06:00 Creat Clearance w eGFR > 60 (>60) 05/22/17 06:00 Random Glucose 82 mg/dL (74-106) 05/22/17 06:00 Calcium 8.8 mg/dL (8.5-10.1) 05/22/17 06:00 Total Bilirubin 1.2 mg/dL (0.2-1.0) H 05/22/17 06:00 AST 16 U/L (15-37) D 05/22/17 06:00 ALT 27 U/L (12-78) D 05/22/17 06:00 Alkaline Phosphatase 60 U/L (45-117) 05/22/17 06:00 Total Protein 7.4 g/dl (6.4-8.2) 05/22/17 06:00 Albumin 3.4 g/dl (3.4-5.0) 05/22/17 06:00 Current Medications Generic Name Dose Route Start Last Admin Trade Name Freq PRN Reason Stop Dose Admin Acetaminophen 650 mg 05/21/17 02:33 05/21/17 17:34 Tylenol - PO 650 mg Q4H PRN Administration FEVER OR PAIN Sodium Chloride 1,000 mls @ 100 mls/hr 05/21/17 02:45 05/22/17 06:36 Normal Saline - IV 100 mls/hr ASDIR SASHA Administration Cefepime HCl 2 gm/ Dextrose 100 mls @ 200 mls/hr 05/21/17 11:45 05/22/17 10: 39 IVPB 200 mls/hr Q8H-IV SASHA Administration Home Medications Medication Instructions Recorded Doxycycline Hyclate 100 mg PO BID 05/21/17 Microbiology 05/20/17 20:00 Urine - Urine Clean Catch Urine Culture - Final NO GROWTH OBTAINED 05/20/17 21:00 Blood - Peripheral Venous Blood Culture - Preliminary NO GROWTH OBTAINED AFTER 24 HOURS, INCUBATION TO CONTINUE FOR 4 DAYS. 05/20/17 20:10 Blood - Peripheral Venous Blood Culture - Preliminary NO GROWTH OBTAINED AFTER 24 HOURS, INCUBATION TO CONTINUE FOR 4 DAYS. IMAGING: CT A/P w/o contrast 05/20/17: The visualized lung base appears unremarkable and the heart is within normal limits in size. There is mild fluid distention of the distal esophagus. Evaluation of the liver, spleen, pancreas, gallbladder, both adrenal glands and both kidneys appear unremarkable. Both kidneys appear unremarkable without evidence of hydroureteronephrosis, renal or ureteral stone , bilaterally. The stomach is partially distended without wall thickening. There is no evidence of small bowel obstruction. Normal-appearing terminal ileum. Nonvisualization of the appendix. Moderate amount of fecal residue in the colon without wall thickening. Partially distended urinary bladder without wall thickening. Normal size prostate gland. Perirectal and pericecal fat are clear. There is moderate to marked degenerative disc disease at L5-S1 level with bilateral spondylolysis and moderate bilateral facet hypertrophy. Mild broad-based disc bulge is slightly narrowing the foramina reaching and probably slightly impinging right L5 nerve root IMPRESSION: Nonvisualization of the appendix. No CT evidence of an acute process in the abdomen and pelvis. Partially distended urinary bladder limiting evaluation of its wall without gross thickening. Moderately severe degenerative disc disease at L5-S1 level with irregularity of the corresponding endplates, bilateral spondylolysis and mild disc bulge likely impinging right L5 nerve root. Scrotal ultrasound 05/20/17: The right testicle measures 5 x 2.6 cm with a homogeneous echotexture and normal vascular flow. The right epididymal head, body and tail measure 7, 4 and 7 mm, respectively. Left testicle measures 4.5 x 3.6 cm with homogeneous echotexture. Arterial and venous flow was documented. The left epididymal head, body and tail measure 7, 7 and 12 mm, respectively. There is a small amount of fluid/hydrocele on the left with septations. On the color Doppler images, there is prominent vascular flow in the left testicle and epididymis relative to the right. There is no evidence of a varicocele IMPRESSION: Hypervascular left testicle and prominent hypervascular left epididymis when compared to the right consistent with left epididymoorchitis. A small left hydrocele with thin septations is present ASSESSMENT/PLAN: 36yo man with PMH of recurrent UTIs who p/w 1x day of L testicular pain and swelling one day after completing a course of Cipro and doxy for UTI diagnosed on 05/09 now with L epididymitis # Acute Sepsis due to L epididymitis - WBC 13.1, fever 100.4 on admission will monitor scotal U/S e/o L epididymitis/ small septated hydrococele [facility] Records in patient's chart: 05/09/17 UCx grew Serratia marescens, sensitive to Cefepime -ID consulted.Started on Cefepime 2gm IVPB q8h but no imrovemet so far -f/u Urine cultures -f/u GC/Chlamydia and Quantiferon - consulted -tylenol prn for pain control # Acute Left epididymitis on IV antibiotics #DVT PPX - SCDs
--- NOTE | 2017-05-22 16:47 | PN ---
Physical Exam: SUBJECTIVE: Patient seen and examined. Continues to have L scrotal swelling and pain. Feels some improvement with scrotal support. No fever or chills overnight. No dysuria or hematuria. OBJECTIVE: Vital Signs Period Temp Pulse Resp BP Sys/Flores Pulse Ox Last 24 Hr 98.6 F-98.9 F 77-90 16-20 98-112/53-80 97 GENERAL: nad, aaox3 EYES: sclera anicteric, conjunctiva clear ENT: oropharynx clear without exudates, MMM NECK: supple, no cervial LAD LUNGS: CTAB HEART: rrr, normal s1/s2 ABDOMEN: Soft, ntnd, LOWER EXTREMITIES: 2+ DP pulses, wwp, no edema : unchanged, enlarged and tender L epididymis with erythema, no penile discharge CBC, BMP 05/22/17 06:00 05/22/17 06:00 Hepatic Panel Total Bilirubin 1.2 mg/dL (0.2-1.0) H 05/22/17 06:00 AST 16 U/L (15-37) D 05/22/17 06:00 ALT 27 U/L (12-78) D 05/22/17 06:00 Alkaline Phosphatase 60 U/L (45-117) 05/22/17 06:00 Albumin 3.4 g/dl (3.4-5.0) 05/22/17 06:00 Microbiology 05/20/17 20:00 Urine - Urine Clean Catch Urine Culture - Final NO GROWTH OBTAINED 05/20/17 21:00 Blood - Peripheral Venous Blood Culture - Preliminary NO GROWTH OBTAINED AFTER 24 HOURS, INCUBATION TO CONTINUE FOR 4 DAYS. 05/20/17 20:10 Blood - Peripheral Venous Blood Culture - Preliminary NO GROWTH OBTAINED AFTER 24 HOURS, INCUBATION TO CONTINUE FOR 4 DAYS. Active Medications Acetaminophen (Tylenol -) 650 mg PO Q4H PRN PRN Reason: FEVER OR PAIN Last Admin: 05/21/17 17:34 Dose: 650 mg Sodium Chloride (Normal Saline -) 1,000 mls @ 100 mls/hr IV ASDIR SASHA Last Admin: 05/22/17 06:36 Dose: 100 mls/hr Cefepime HCl 2 gm/ Dextrose 100 mls @ 200 mls/hr IVPB Q8H-IV SASHA Last Admin: 05/22/17 10:39 Dose: 200 mls/hr Lactobacillus Acidophilus (Bacid -) 1 tab PO DAILY SASHA ASSESSMENT/PLAN: 36yo man with PMH of recurrent UTIs who p/w 1x day of L testicular pain and swelling 24h after completing a course of Cipro and Doxy for UTI diagnosed on (+Serratia marescens, see paper chart for sensitivities) now with sepsis 2/2 L epididymitis (WBC 13.1, T100.4 on admission). #Sepsis 2/2 L epididymitis, WBC increased today Scrotal U/S e/o L epididymitis and small septated hydrococele -ID consulted. 05/09 Cx sensitive to Cefepime - c/w Cefepime 2gm q8h, Day 2 -f/u GC/Chlamydia, Quantiferon, Urine AFB culture -f/u ESR, CRP, AJAY for inflammatory markers - consulted - offered vasectomy as O/P -tylenol prn for pain control #DVT PPX - SCDs #FEN: NS 100cc/hr / lytes wnl / Regular diet #DISPO: continue M/S FULL code d/w Dr. Orlando Lazo MD PGY1 - Internal Medicine Visit type - Emergency Visit Emergency Visit: No - New Patient This patient is new to me today: No - Critical Care Critical Care patient: No
[2017-05-23] MEDS: CEFEPIME 2 GM in DEXTROSE 5%-WATER - 100 ML IVPB SCH ×3 (01:36→17:19)
--- NOTE | 2017-05-23 07:13 | PN ---
Physical Exam: SUBJECTIVE: Patient seen and examined. No fever or chills. Continues to have L scrotal pain and swelling. No dysuria or hematuria. OBJECTIVE: Vital Signs Period Temp Pulse Resp BP Sys/Flores Pulse Ox Last 24 Hr 98.2 F-99.4 F 68-78 18-20 110-116/63-68 GENERAL: lying comfortably in bed, nad, aaox3 EYES: sclera anicteric, conjunctiva clear ENT: oropharynx clear without exudates, MMM NECK: supple, no cervical LAD LUNGS: CTAB HEART: rrr, normal s1/s2 ABDOMEN: Soft, ntnd, LOWER EXTREMITIES: 2+ DP pulses, wwp, no edema : L scrotum twice size of R, tender L epididymis with erythema,+induration CBC, BMP 05/23/17 06:30 05/23/17 06:30 Hepatic Panel Total Bilirubin 1.2 mg/dL (0.2-1.0) H 05/22/17 06:00 AST 16 U/L (15-37) D 05/22/17 06:00 ALT 27 U/L (12-78) D 05/22/17 06:00 Alkaline Phosphatase 60 U/L (45-117) 05/22/17 06:00 Albumin 3.4 g/dl (3.4-5.0) 05/22/17 06:00 Microbiology 05/20/17 21:00 Blood - Peripheral Venous Blood Culture - Preliminary NO GROWTH OBTAINED AFTER 72 HOURS, INCUBATION TO CONTINUE FOR 2 DAYS. 05/20/17 20:10 Blood - Peripheral Venous Blood Culture - Preliminary NO GROWTH OBTAINED AFTER 72 HOURS, INCUBATION TO CONTINUE FOR 2 DAYS. 05/20/17 20:00 Urine - Urine Clean Catch Urine Culture - Final NO GROWTH OBTAINED Active Medications Acetaminophen (Tylenol -) 650 mg PO Q4H PRN PRN Reason: FEVER OR PAIN Last Admin: 05/23/17 10:25 Dose: 650 mg Cefepime HCl 2 gm/ Dextrose 100 mls @ 200 mls/hr IVPB Q8H-IV SASHA Last Admin: 05/23/17 17:19 Dose: 200 mls/hr Lactobacillus Acidophilus (Bacid -) 1 tab PO DAILY SASHA Last Admin: 05/23/17 10:24 Dose: 1 tab ASSESSMENT/PLAN: 36yo man with PMH of recurrent UTIs who p/w 1x day of L testicular pain and swelling 24h after completing a course of Cipro and Doxy for UTI diagnosed on (+Serratia marescens, see paper chart for sensitivities) now with sepsis 2/2 L epididymitis (WBC 13.1, T100.4 on admission). #L epididymitis, patient no longer septic, leukocytosis improved today Scrotal U/S e/o L epididymitis and small septated hydrococele -ID consulted. c/w Cefepime 2gm q8h, Day 3 -GC and Chlamydia negatie; Quantiferon and Urine AFB culture pending -f/u ESR, CRP, AJAY for inflammatory markers - consulted - offered vasectomy as O/P -tylenol prn for pain control #DVT PPX - encourage amulation #FEN: PO hydration / lytes wnl / Regular diet #DISPO: continue M/S FULL code d/w Dr. Giovany Lazo MD PGY1 - Internal Medicine Visit type - Emergency Visit Emergency Visit: No - New Patient This patient is new to me today: No - Critical Care Critical Care patient: No
[2017-05-23 08:31] LABS: HEMATOCRIT 40.6 % (35.4-49); HEMOGLOBIN 13.1 GM/dL (11.7-16.9); MCH 30.3 pg (25.7-33.7); MCHC 32.4 g/dl (32.0-35.9); MEAN CELL VOLUME 93.6 fl (80-96); MEAN PLT VOLUME 8.6 fl (7.5-11.1); PLATELET COUNT 312 K/MM3 (134-434); RBC 4.34 M/mm3 (4.00-5.60); RDW 12.8 % (11.9-15.9); WHITE BLOOD COUNT 10.9 K/mm3 (4.0-10.0)
[2017-05-23 09:08] LABS: ANION GAP 9 (8-16); BLOOD UREA NITROGEN 11 mg/dL (7-18); CHLORIDE 106 mmol/L (98-107); CO2 27 mmol/L (21-32); CREATININE 1.1 mg/dL (0.7-1.3); GLUCOSE,RANDOM 77 mg/dL (74-106); POTASSIUM 4.5 mmol/L (3.5-5.1); SODIUM 142 mmol/L (136-145)
[2017-05-23] MEDS ORDERED: PT OWN MED DRAWER 7, Y5N ONE (10:22)
[2017-05-23] MEDS: SODIUM CHLORIDE 1,000 ML IV SCH ×2 (10:23→10:24)
[2017-05-23] MEDS: LACTOBACILLUS ACIDOPHILUS 1 EACH TAB (FP) PO SCH (10:24)
[2017-05-23] MEDS: ACETAMINOPHEN 325 MG TABLET (FP) PO PRN (10:25)
--- NOTE | 2017-05-23 12:38 | PN ---
Progress Note (short form) - Note Progress Note: improved, less pain , less swelling a bit more comfortable Vital Signs Period Temp Pulse Resp BP Sys/Flores Pulse Ox Last 24 Hr 98.2 F-99.4 F 68-78 18-20 110-116/63-84 98 cor-rrr lungs clear abd soft, nt ext no edema less swelling left scrotum +erythema, +induration CBC, BMP 05/23/17 06:30 05/23/17 06:30 Microbiology 05/20/17 21:00 Blood - Peripheral Venous Blood Culture - Preliminary NO GROWTH OBTAINED AFTER 48 HOURS, INCUBATION TO CONTINUE FOR 3 DAYS. 05/20/17 20:10 Blood - Peripheral Venous Blood Culture - Preliminary NO GROWTH OBTAINED AFTER 48 HOURS, INCUBATION TO CONTINUE FOR 3 DAYS. 05/20/17 20:00 Urine - Urine Clean Catch Urine Culture - Final NO GROWTH OBTAINED chlamydia/gc NAAT pending a/p left epididymitis- cultures negative (recent cipro/doxy) continue cefepime f/u quant, send urine afb hopefully switch to po abx soon
--- NOTE | 2017-05-23 20:24 | PN ---
Teaching Attending Note Name of Resident: Ngoc Lazo ATTENDING PHYSICIAN STATEMENT I saw and evaluated the patient. I reviewed the resident's note and discussed the case with the resident. I agree with the resident's findings and plan as documented. SUBJECTIVE: pain in L alfie-scrotum OBJECTIVE: NAd CV : RRR Lung s: CTAB Ext : no edema Abd: soft, NT< ND , NL BS : L hemiscrotum with erythematous , tender skin, enlarged L testicle, enlarged tender epididymis. NO inguinal LAP ASSESSMENT AND PLAN: 36 y/o man withh/o recurrent UTIs, who presented with L scrotal pain and was found to have L epididymo-orchitis [id number]: - cont cefepime - follow Quantiferone gold - follow AFB in urine - scrotal elevation - dc IVF ambulatory
[2017-05-24] MEDS: CEFEPIME 2 GM in DEXTROSE 5%-WATER - 100 ML IVPB SCH ×2 (01:13→09:55)
--- NOTE | 2017-05-24 07:24 | PN ---
Physical Exam: SUBJECTIVE: Patient seen and examined OBJECTIVE: Vital Signs Period Temp Pulse Resp BP Sys/Flores Pulse Ox Last 24 Hr 98.0 F-98.9 F 68-84 18-20 105-117/56-84 98 GENERAL: The patient is awake, alert, and fully oriented, in no acute distress. HEAD: Normal with no signs of trauma. EYES: PERRL, extraocular movements intact, sclera anicteric, conjunctiva clear. No ptosis. ENT: Ears normal, nares patent, oropharynx clear without exudates, moist mucous membranes. NECK: Trachea midline, full range of motion, supple. LUNGS: Breath sounds equal, clear to auscultation bilaterally, no wheezes, no crackles, no accessory muscle use. HEART: Regular rate and rhythm, S1, S2 without murmur, rub or gallop. ABDOMEN: Soft, nontender, nondistended, normoactive bowel sounds, no guarding, no rebound, no hepatosplenomegaly, no masses. EXTREMITIES: 2+ pulses, warm, well-perfused, no edema. NEUROLOGICAL: Cranial nerves II through XII grossly intact. Normal speech, gait not observed. PSYCH: Normal mood, normal affect. SKIN: Warm, dry, normal turgor, no rashes or lesions noted Laboratory Results - last 24 hr 05/21/17 05/23/17 05/23/17 05:25 06:30 06:30 WBC RBC Hgb Hct MCV MCH MCHC RDW Plt Count MPV ESR 51 H Sodium 142 Potassium 4.5 Chloride 106 Carbon Dioxide 27 Anion Gap 9 BUN 11 Creatinine 1.1 Random Glucose 77 Calcium 9.0 C-Reactive Protein 9.2 H C.trachomatis Ampl DNA Negative N. gonorrhoeae (JAMIE) Negative 05/23/17 06:30 WBC 10.9 H RBC 4.34 Hgb 13.1 Hct 40.6 MCV 93.6 MCH 30.3 MCHC 32.4 RDW 12.8 Plt Count 312 MPV 8.6 ESR Sodium Potassium Chloride Carbon Dioxide Anion Gap BUN Creatinine Random Glucose Calcium C-Reactive Protein C.trachomatis Ampl DNA N. gonorrhoeae (JAMIE) Active Medications Generic Name Dose Route Start Last Admin Trade Name Freq PRN Reason Stop Dose Admin Acetaminophen 650 mg 05/21/17 02:33 05/23/17 10:25 Tylenol - PO 650 mg Q4H PRN Administration FEVER OR PAIN Cefepime HCl 2 gm/ Dextrose 100 mls @ 200 mls/hr 05/21/17 11:45 05/24/17 01: 13 IVPB 200 mls/hr Q8H-IV SASHA Administration Lactobacillus Acidophilus 1 tab 05/23/17 10:00 05/23/17 10:24 Bacid - PO 1 tab DAILY SASHA Administration ASSESSMENT/PLAN:
[2017-05-24 08:20] LABS: CHLORIDE 107 mmol/L (98-107); POTASSIUM 4.4 mmol/L (3.5-5.1); SODIUM 140 mmol/L (136-145)
[2017-05-24 08:28] LABS: ALBUMIN 3.1 g/dl (3.4-5.0); ALK PHOS 54 U/L (45-117); ANION GAP 6 (8-16); BILIRUBIN,TOTAL 0.8 mg/dL (0.2-1.0); BLOOD UREA NITROGEN 12 mg/dL (7-18); CALCIUM 8.7 mg/dL (8.5-10.1); CO2 27 mmol/L (21-32); CREATININE 1.1 mg/dL (0.7-1.3); GLUCOSE,RANDOM 86 mg/dL (74-106); SGOT/AST 14 U/L (15-37); SGPT/ALT 27 U/L (12-78); TOT PROT 6.9 g/dl (6.4-8.2)
[2017-05-24] MEDS ORDERED: PT OWN MED DRAWER 7, Y5N ONE (09:53)
[2017-05-24] MEDS: LACTOBACILLUS ACIDOPHILUS 1 EACH TAB (FP) PO SCH (09:55)
--- NOTE | 2017-05-24 12:42 | PN ---
Progress Note, Physician History of Present Illness: Reports less L scrotal pain No voiding difficulty. No dysuria. No fever/ chills Cultures negative - Current Medication List Current Medications: Active Medications Acetaminophen (Tylenol -) 650 mg PO Q4H PRN PRN Reason: FEVER OR PAIN Last Admin: 05/23/17 10:25 Dose: 650 mg Cefepime HCl 2 gm/ Dextrose 100 mls @ 200 mls/hr IVPB Q8H-IV SASHA Last Admin: 05/24/17 09:55 Dose: 200 mls/hr Lactobacillus Acidophilus (Bacid -) 1 tab PO DAILY SASHA Last Admin: 05/24/17 09:55 Dose: 1 tab - Objective Vital Signs: Vital Signs Temperature 98.2 F 05/24/17 09:50 Pulse Rate 73 05/24/17 09:50 Respiratory Rate 20 05/24/17 09:50 Blood Pressure 120/66 05/24/17 09:50 O2 Sat by Pulse Oximetry (%) 96 05/24/17 10:00 Constitutional: Yes: No Distress Cardiovascular: Yes: Regular Rate and Rhythm, S1, S2 Respiratory: Yes: CTA Bilaterally Gastrointestinal: Yes: Normal Bowel Sounds, Soft. No: Tenderness Genitourinary: Yes: Other (Less L epididymal swelling and tenderness) Labs: CBC, BMP 05/23/17 06:30 05/24/17 06:30 Assessment/Plan L epididymitis + Urine c/s Serratia (outpatient) Clinically improved on cefepime May substitute po Vantin (cefpodoxime) 100mg bid x 10d Outpatient urology follow up
[2017-05-24 13:16] LABS: BASO % 0.6 % (0-2.0); EOS % 2.1 % (0-4.5); HEMATOCRIT 41.4 % (35.4-49); HEMOGLOBIN 13.6 GM/dL (11.7-16.9); LYMPH % 26.6 % (8-40); MCH 30.2 pg (25.7-33.7); MCHC 32.7 g/dl (32.0-35.9); MEAN CELL VOLUME 92.3 fl (80-96); MEAN PLT VOLUME 8.3 fl (7.5-11.1); MONO % 10.1 % (3.8-10.2); NEUT % 60.6 % (42.8-82.8); PLATELET COUNT 377 K/MM3 (134-434); RBC 4.48 M/mm3 (4.00-5.60); RDW 12.3 % (11.9-15.9)
[2017-05-24 15:34] VITALS: BP 114/67; PULSE 75; TEMP 98.7
--- NOTE | 2017-05-24 16:07 | PN ---
Teaching Attending Note Name of Resident: Ngoc Lazo ATTENDING PHYSICIAN STATEMENT I saw and evaluated the patient. I reviewed the resident's note and discussed the case with the resident. I agree with the resident's findings and plan as documented. SUBJECTIVE: No fever or chills. L testicle feels better . OBJECTIVE: NAd CV : RRR Lungs: CTAB Ext : no edema : L hemiscrotum with less erythematous , tender skin, enlarged L testicle, enlarged tender epididymis. NO inguinal LAP ASSESSMENT AND PLAN: 36 y/o man with h/o recurrent UTIs, who presented with L scrotal pain and was found to have L epididymo-orchitis 4-[id number]-[id number]: no fever , leukocytosis resolved .sx improved - serratia grew in urine as out pt , sensitivity reviewed, sensitive to ceftriaxone---> vantin as out pt x 10 more days. will give one dose before he leaves ( last dose of cefepime 9 am today ) follow Quantiferone gold Neg - AFB in urine pending - f/u with uro and ID and PCP as outpt - CBC as outpt -plan d/w him .
[2017-05-24] MEDS ORDERED: CEFPODOXIME PROXETIL 100 MG TABLET PO ONE (16:30)
== END 2017-05-24 16:58 | disposition home or self-care (01) | DRG 872 ==
LOC: JER 18:48 → JERBED 05-21 00:39 → OBSVTOIN 05-21 02:33 → J8W 05-21 17:00
PROVIDERS: ADMIT Internal Medicine; ATTEND Internal Medicine
DX: A41.9 Sepsis, unspecified organism (principal); N45.3 Epididymo-orchitis; M43.07 Spondylolysis, lumbosacral region; N43.3 Hydrocele, unspecified; I86.1 Scrotal varices
CPT/HCPCS: 36415; 71046-TC; 74176; 76870-TC; 80048; 80053; 81003; 83605; 84703; 85025; 85027; 85651; 86038; 86140; 86480; 87040; 87086; 87116; 87491; 87591; 99284-25; G0378